=== PATIENT | female | born 1995 | race African-American/Black ===

== ENCOUNTER 2024-07-18 11:55 | Inpatient (IN) | payer OTHER ==
[2024-07-18] MEDS ORDERED: Misoprostol 200 MCG TAB PR PRN (12:20)
[2024-07-18] MEDS ORDERED: Tranexamic Acid 1,000 MG/10 ML VIAL IVP PRN (12:20)
[2024-07-18] MEDS ORDERED: hydrALAZINE 20 MG/ML VIAL SLOW IVP PRN ×2 (12:20→18:29)
[2024-07-18] MEDS ORDERED: Acetaminophen 500 MG TAB PO PRN (12:20)
[2024-07-18] MEDS ORDERED: Promethazine HCl 25 MG/ML VIAL IM PRN ×2 (12:20→18:29)
[2024-07-18] MEDS ORDERED: Methylergonovine 0.2 MG/ML VIAL IM PRN (12:20)
[2024-07-18] MEDS ORDERED: Ibuprofen 800 MG TAB PO PRN ×2 (12:20→21:00)
[2024-07-18] MEDS ORDERED: Carboprost 250 MCG/ML AMP IM PRN (12:20)
[2024-07-18] MEDS ORDERED: Lidocaine 1% (PF) 30 ML VIAL SC PRN (12:20)
[2024-07-18] MEDS ORDERED: Diphenoxylate HCl/Atropine Tablet PO PRN (12:20)
[2024-07-18] MEDS: Betamet Acet/Betamet Na Ph 30 MG/5 ML VIAL IM SCH (12:25)
[2024-07-18 12:40] VITALS: BMI 42.4
[2024-07-18] MEDS: Betamet Acet/Betamet Na Ph 30 MG/5 ML VIAL ONE (12:41)
[2024-07-18] MEDS: Magnesium Sulfate 20 gm/500 ml 20 GM/500 ML BAG ONE (12:43)
[2024-07-18] MEDS: Lactated Ringer's 1,000 ML IV SCH (12:57)
[2024-07-18] MEDS: Azithromycin 500 MG in Sodium Chloride 0.9% 250 ML 250 ML IVPB SCH (13:02)
[2024-07-18] MEDS: Indomethacin 25 mg Capsule PO SCH (13:25)
[2024-07-18 13:37] LABS: Hemoglobin 11.8 g/dL (12.0-15.5); Mean Corpuscular HGB CONC 31.1 g/dL (32.0-36.0); Mean Platelet Volume 10.7 fL (7.4-10.4); Platelet Count 252 10x3/uL (150-450); RBC Distribution Width 14.6 % (11.5-14.5); Red Blood Cell (RBC) Count 4.22 10x6/uL (3.90-5.03); White Blood Cell (WBC) Count 16.2 10x3/uL (3.5-10.5)
[2024-07-18 13:47] LABS: HBsAg Index 0.24 S/CO (0-0.99); Hep B Surf Ag - L&D Non-Reactive S/CO (NonReactive)
[2024-07-18 13:48] LABS: Syphilis Antibody Nonreactive (Nonreactive); Syphilis Antibody Index 0.03 S/CO (<1.00 Non-Reactive)
[2024-07-18] MEDS: Ondansetron PF 4 MG/2 ML Vial IVP PRN (14:09)
[2024-07-18] MEDS: Oxytocin 30 units/NS 500 ML 500 ML IV SCH (17:19)
[2024-07-18] MEDS ORDERED: Ampicillin 2 GM in Sodium Chloride 0.9% 100 ML IVPB SCH (18:00)
[2024-07-18] MEDS: HYDROcodone/Acetaminophen 5/325 mg Tablet PO PRN (18:27)
[2024-07-18] MEDS ORDERED: HYDROcodone/Acetaminophen 5/325 mg Tablet PO PRN (18:29)
[2024-07-18] MEDS ORDERED: Milk Of Magnesia 30 ML UDCUP PO PRN (18:29)
[2024-07-18] MEDS ORDERED: Ondansetron PF 4 MG/2 ML Vial IVP PRN (18:29)
[2024-07-18] MEDS ORDERED: diphenhydrAMINE 25 MG CAP PO PRN (18:29)
[2024-07-18] MEDS ORDERED: Bisacodyl 10 MG SUPP PR PRN (18:29)
[2024-07-18] MEDS: Boostrix 0.5 ML (Tdap) VIAL (>/=7 yrs of age) IM ONE (21:05)
[2024-07-18] MEDS: fentaNYL/Ropivacaine Epidural 0 ML ONE (21:05)
[2024-07-18] MEDS: Ibuprofen 800 MG TAB PO SCH (21:21)
[2024-07-18] MEDS: Docusate 100 MG CAP PO SCH (21:22)
[2024-07-19] MEDS: Ferrous Sulfate 325 MG TAB PO SCH (07:41)
[2024-07-19] MEDS: Prenatal Vitamin 1 TAB PO SCH (08:26)
[2024-07-20 01:06] VITALS: BP 138/65; TEMP 98.1
== END 2024-07-20 03:50 | disposition home or self-care (01) | DRG 807 ==
LOC: CSHLD 11:55 → CSHPED 20:15
PROVIDERS: ADMIT Family Medicine; ATTEND Family Medicine
PROC: 10E0XZZ Delivery of Products of Conception, External Approach (ICD-10-PCS; principal; 2024-07-18)
DX: O24.420 Gestational diabetes mellitus in childbirth, diet controlled (principal); Z37.0 Single live birth; O99.214 Obesity complicating childbirth; E66.9 Obesity, unspecified; Z3A.24 24 weeks gestation of pregnancy
CPT/HCPCS: 51702; 85027; 86780; 86850; 86900; 86901; 87340; 88305; J0456; J2405; J2590; J3475; J7050; J7120